=== PATIENT | male | born 1995 | race Caucasian/White ===

== ENCOUNTER 2017-12-24 00:25 | Emergency (ER) | payer OTHER, SELFPAY ==
[2017-12-24] VITALS (12 sets, daily range): BP systolic 135–167; BP diastolic 68–88; PULSE 96–129; RESP 18; TEMP 36.9; O2SAT 98–100
--- NOTE | 2017-12-24 00:50 | ED.GENADUL ---
Disposition Clinical Impression: Cocaine use, Seizure, Marijuana use Disposition: AGAINST MEDICAL ADVICE Condition: Stable Additional Instructions: It is recommended that you stay and have further evaluation including imaging such as MRI of the brain. Your seizure is likely to have been caused by cocaine but cocaine can cause vascular problems including strokes. Your CT scan is not completely normal and while it may be artifact there may be a vascular problem occurring. You have been told of the risk of stroke, neurologic deficit, . You understand the risk and have decided to sign out AMA. Because of the seizure you should avoid driving, swimming, heights, any other dangerous activity until seen and cleared by a neurologist. You should follow-up with the neurologist to get further evaluation. You may return to the ED at any time if you change your mind in terms of evaluation. You should definitely return to the ED if you develop any new neurologic symptoms, recurrent seizures, headaches. Avoid drugs and alcohol completely for the time being. Referrals: Irena Hdez MD [ [facility] STAFF PHYSICIAN] - Primary Care Provider [Outside] Medical Decision Making - Lab Data Results reviewed for labs ordered during visit: Yes - EKG Data -: EKG Interpreted by Me EKG shows normal: sinus rhythm Rate: tachycardia Interpretation: nonspecific ST-T wave changes - Radiology Data Radiology results: report reviewed - Medical Decision Making Patient here status post what certainly sounds like seizure and is likely related to cocaine intoxication. He is currently normal neurologically. He is tachycardic. His EKG is sinus tach at 115. He has some J-point elevation and some non-specific changes but nothing acute. IV established and laboratory studies sent. Head CT ordered. Seizure precautions ordered. Patient's laboratory studies are significant for a white count of 18,000 which may be related to the seizure, the cocaine use, distress. His hemoglobin is normal. His chemistries are unremarkable. Urine drug screen positive for marijuana and cocaine as he admitted to. Alcohol level is 0. Head CT is being read preliminarily as no acute intracranial pathology. The superior sagittal sinus appears slightly hyperdense but does not appear to be related to venous sinus thrombosis. However, since the scan was done without contrast this cannot be completely eliminated as a possibility. Patient's heart rate has come down to normal with fluids. He remains neurologically intact. Case is discussed with neurology at [facility]. Because of the cocaine use and the risk of vascular problems including stroke they are recommending admission for neuro checks as well as CTA of the brain followed by MRI of the brain. Would not start any type of antiepileptic until workup was completed. I went to discuss this with the patient. Recommendations were made to be admitted and complete evaluation here in the hospital. Risk of stroke, neurologic deficit, was discussed. Patient is declining admission and wants to leave AMA. He has capacity to make this decision and understands the risk. I have instructed him not to drive, swim, participate in dangerous activities until he is followed up by neurology and has completed his evaluation. I have instructed him to return to the ED if he changes his mind or if he has any new neurologic symptoms or recurrent seizures. He has been referred to Dr. Ag for follow-up. He is discharged AGAINST MEDICAL ADVICE. History of Present Illness - General Chief complaint: Seizure Stated complaint: SEIZURE Time Seen by Provider: 12/24/17 00:50 Source: patient Mode of arrival: ambulatory Limitations: no limitations - History of Present Illness Initial comments: Patient presents to ED status post seizure. Patient has no history of seizures. Patient has no recollection of event. His girlfriend reports that he had walked over to the door and she thought he was going out. He subsequently became stiff and fell. He began to shake all over. He was incontinent of urine. Episode lasted about 3 minutes. He was then confused afterwards. EMS was called. On their arrival he was back to baseline and refused transport but did come in on his own. He admits to cocaine use, 2 lines, prior to the event happening. He uses cocaine sporadically. He also smoked marijuana and drank alcohol tonight. He currently has no physical complaints. He denies having headache, neck pain, chest pain, shortness of breath, numbness, weakness. - Related Data Unknown [No Known Home Meds] 11/14/16 Allergies Allergy/AdvReac Type Severity Reaction Status Date / Time No Known Allergies Allergy Unverified 12/24/17 00:45 Review of Systems Constitutional: denies: chills, fever Eyes: denies: eye pain, vision change ENT: denies: ear pain, throat pain, congestion Respiratory: denies: cough, shortness of breath Cardiovascular: denies: chest pain, palpitations, syncope Gastrointestinal: denies: abdominal pain, nausea, vomiting, diarrhea Genitourinary: denies: dysuria Musculoskeletal: denies: back pain, arthralgia, myalgia Skin: denies: rash Neurological: other (Seizure). denies: headache, weakness, numbness, paresthesias Past Medical History - Past Medical History Medical history: no medical history Surgical history: no surgical history - Social History Smoking status: current some day smoker Alcohol use: recent Drug use: cocaine, marijuana General Exam - General Limitations: no limitations General appearance: alert, in no apparent distress - Head Head exam: Present: atraumatic, normocephalic - Eye Eye exam: Present: normal apperance, PERRL, EOMI - Neck Neck exam: Present: normal inspection, full ROM. Absent: tenderness - Respiratory Respiratory exam: Present: normal lung sounds bilaterally - Cardiovascular Cardiovascular Exam: Present: regular rate, normal rhythm, normal heart sounds - GI/Abdominal GI/Abdominal exam: Present: soft. Absent: distended, tenderness, guarding - Extremities Exam Extremities exam: Present: normal inspection, full ROM. Absent: tenderness - Neurological Exam Neurological exam: Present: alert, oriented X3, CN II-XII intact, normal gait. Absent: motor sensory deficit - Psychiatric Psychiatric exam: Present: normal affect, normal mood - Skin Skin exam: Present: warm, dry, intact Course Vital Signs - 24 hr //18 00:35 Temperature 98.4 F Pulse 129 H Respiratory 18 Rate Blood Pressure 167/88 Pulse Oximetry 98
--- NOTE | 2017-12-24 01:15 | DI.RPTCT_ITS ---
SYMPTOM/DIAGNOSIS: NEW ONSET SEIZURE NONCONTRAST HEAD CT: No prior comparison exams. No intracranial hemorrhage or skull fracture seen. There is no evidence of mass or infarct. The ventricles are normal in size. The sinuses and mastoid air cells appear clear. IMPRESSION: Negative head CT
[2017-12-24 01:57] LABS: Abs Immature Grans 0.07 k/cumm (0.0-0.09); Basophils % 0.2; Eosinophils % 0.2; HCT 43.1 % (40.0-50.0); HGB 15.7 g/dL (13.5-17.5); Immature Grans % 0.4; Lymphocytes % 5.5; Mean Corp. HGB Concentration 36.4 g/dL (32.0-36.0); Mean Corpuscular Hemoglobin 30.2 pg (27.0-33.0); Mean Corpuscular Volume 82.9 fL (80-95); Mean Platelet Volume 10.2 fL (8.0-11.0); Monocytes % 6.1; Neutrophils % 87.6; Platelet Count 217 x1000/uL (130-400); RBC Distribution Width 12.6 % (11.8-14.1); White Blood Cell Count 18.06 k/cumm (4.4-10.8)
[2017-12-24 01:58] LABS: Bilirubin Negative (Negative); Blood Small (Negative); Clarity Sl Cloudy; Glucose Negative (Negative); Ketones Trace mg/dL (Negative); Leukocyte Esterase Negative (Negative); Nitrite Negative (Negative); Specific Gravity >= 1.030 (1.005-1.025); Urobilinogen 0.2 EU/dL (Up TO 0.2); pH 5.5 (5-8)
[2017-12-24 02:00] LABS: Absolute Basophil Count 0.04 k/cumm (0.0-0.2); Absolute Eosinophil Count 0.04 k/cumm (0.0-0.7); Absolute Lymphocyte Count 0.99 k/cumm (1.2-3.4); Absolute Neutrophil Count 15.82 k/cumm (1.2-6.7)
[2017-12-24 02:13] LABS: *AMPHETAMINES SCREEN URINE Negative (Negative); *BARBITURATES SCREEN URINE Negative (Negative); *BENZODIAZEPINES SCREEN URINE Negative (Negative); Cannabinoids THC POSITIVE (Negative); Cocaine Screen,Urine POSITIVE (Negative); METHADONE URINE SCREEN Negative (Negative); OPIATES URINE SCREEN Negative (Negative)
--- NOTE | 2017-12-24 02:14 | DI.VRAD_ITS ---
EXAM: CT Head Without Intravenous Contrast CLINICAL HISTORY: 22 years old, male; Signs and symptoms; Other: New onset seizure TECHNIQUE: Axial computed tomography images of the head/brain without intravenous contrast. All CT scans at this facility use at least one of these dose optimization techniques: automated exposure control; mA and/or kV adjustment per patient size (includes targeted exams where dose is matched to clinical indication); or iterative reconstruction. Coronal and sagittal reformatted images were created and reviewed. COMPARISON: No relevant prior studies available. FINDINGS: Brain: No evidence of acute intracranial bleed. No mass lesion or mass effect. Anne/white matter differentiation is unremarkable. Cerebellum is unremarkable. Cisterns are unremarkable. Brainstem is unremarkable. No suprasellar mass. Ventricles: Unremarkable. No ventriculomegaly. Bones/joints: Unremarkable. No acute fracture. Soft tissues: Unremarkable. Vasculature: Superior sagittal sinus appears slightly hyperdense which appears to be secondary to hematocrit effect. Sinuses: Unremarkable as visualized. No acute sinusitis. Mastoid air cells: Unremarkable as visualized. No mastoid effusion. IMPRESSION: 1. No evidence of intracranial pathology. 2. Superior sagittal sinus appears slightly hyperdense which appears to be secondary to hematocrit effect. This finding can be seen in high hematocrit levels or dehydration. Please correlate clinically. Thrombosis of superior sagittal sinus has higher attenuation values than seen on current study and the findings on the current study do not suggest venous sinus thrombosis. Please however note that study was performed without IV contrast and cannot evaluate for venous sinus thrombosis. MRI with contrast or CT angiogram with venous images is recommended if evaluation for venous sinus thrombosis is clinically needed. Dictated and Authenticated by: Steven Choudhary MD. Ordering:PAUL BLAKE MD
[2017-12-24] MEDS: Lactated Ringers 1,000 ML 1000 ML IV (02:23)
[2017-12-24] MEDS: Normal Saline Flush 10 ML SYR IVP (02:24)
[2017-12-24 02:26] LABS: ALT 33 U/L (12-78); AST 29 U/L (15-37); Albumin 4.7 g/dL (3.4-5.0); Alkaline Phosphatase 71 U/L (46-116); Anion Gap 7.4 mmol/L (3-11); BUN 12 mg/dL (7-18); Bilirubin, Total 1.2 mg/dL (0.2-1.0); CO2 29.6 mmol/L (21.0-32.0); CREATININE 1.17 mg/dL (0.70-1.30); Calcium 9.1 mg/dL (8.5-10.1); Chloride 102 mmol/L (98-107); Glucose 138 mg/dL (70-100); Magnesium 1.9 mg/dL (1.8-2.4); Potassium 3.5 mmol/L (3.5-5.1); Sodium 139 mmol/L (136-145); TSH 2.04 uIU/mL (0.358-3.74); Total Protein 7.8 g/dL (6.4-8.2)
[2017-12-24 02:27] LABS: Bacteria Negative HPF (Negative); Epithelial Cells Negative HPF (Negative); RBC 0-2 (0-2); WBC 0-2 HPF (0-5)
[2017-12-24 02:28] LABS: C & S Indicated? No/Sq. Contamination; Casts Negative LPF (Negative); Crystals Other HPF (Negative); Mucus Negative (Negative)
[2017-12-24 02:30] LABS: Tricyclic Antidepressants Negative (Negative)
[2017-12-24 02:47] LABS: ETHANOL BLOOD < 3.0 mg/dL (<3)
--- NOTE | 2017-12-24 12:48 | PDOC.ERCMPRO ---
Care Management Progress Note 12/24-Dr. Emerson requested assistance with a neurology and PCP (Courtney Watkins rehabilitation physician) f/u as soon as possible for seizures. Referral faxed to Neurology and [facility] today.
--- NOTE | 2017-12-24 12:49 | CMPROGNOTE_ITS ---
Care Management Progress Note 12/24-Dr. Emerson requested assistance with a neurology and PCP (Courtney Watkins purification supervisor) f/u as soon as possible for seizures. Referral faxed to Neurology and [facility] today.
== END 2017-12-24 04:19 | disposition left against medical advice (07) ==
PROVIDERS: Emergency Provider Emergency Medicine
DX: R56.9 Unspecified convulsions (principal); F14.129 Cocaine abuse with intoxication, unspecified; F12.90 Cannabis use, unspecified, uncomplicated; Z53.29 Procedure and treatment not carried out because of patient's decision for other reasons
CPT/HCPCS: 36415; 80053; 80307; 93005; 96360; 99285; 70450; 80320; 81003; 81015; 83735; 84443; 85025; 93010

== ENCOUNTER 2020-01-09 07:05 | Outpatient (CLI) | payer OTHER, SELFPAY ==
[2020-01-11 14:37] LABS: Patient Race White; SARS-CoV-2 RNA Undetected (Undetected); SARS-CoV-2 Specimen Source Nasopharynx
== END 2020-01-09 07:25 ==
PROVIDERS: Visit Provider Family Medicine
DX: Z11.59 Encounter for screening for other viral diseases (principal)
CPT/HCPCS: U0003

== ENCOUNTER 2022-01-27 17:38 | Outpatient (REF) | payer BC, SELFPAY ==
[2022-01-27 15:30] LABS: HCT 45.4 % (40.0-50.0); HGB 15.6 g/dL (13.5-17.5); MCH 29.6 pg (27.0-33.0); MCHC 34.4 % (32.0-36.0); MCV 86 fL (80-95); MPV 10.8 fL (8.0-11.0); Platelet Count 221 10^3/uL (130-400); RBC 5.27 10^6/uL (4.36-5.78); RDW 11.9 % (11.8-14.1); RDW-SD 37.5 fL; WBC 4.98 10^3/uL (4.4-10.8)
[2022-01-27 15:51] LABS: Anion Gap 7.5 mmol/L (3-11); BUN 13 mg/dL (7-18); CO2 30.5 mmol/L (21.0-32.0); CREATININE 0.9 mg/dL (0.70-1.30); Calcium 9.2 mg/dL (8.5-10.1); Calculated LDL 58 mg/dL (<100); Chloride 104 mmol/L (98-107); Cholesterol 151 mg/dL (<200); Glucose 88 mg/dL (74-106); HDL Cholesterol 80 mg/dL (40-60); Potassium 4.2 mmol/L (3.5-5.1); Sodium 142 mmol/L (136-145); Triglyceride 67 mg/dL (<150)
== END 2022-01-27 17:39 | disposition home or self-care (01) ==
LOC: NCHCN 17:38
PROVIDERS: Visit Provider Physician Assistant
DX: I10 Essential (primary) hypertension (principal)
CPT/HCPCS: 80048; 80061; 85027

== ENCOUNTER 2023-09-06 15:12 | Outpatient (REF) | payer BC, SELFPAY ==
[2023-09-06 15:43] LABS: HGB 15.3 g/dL (13.5-17.5); MCV 85 fL (80-95); MPV 10.3 fL (8.0-11.0); Platelet Count 270 10^3/uL (130-400); RBC 5.28 10^6/uL (4.36-5.78); RDW 12.2 % (11.8-14.1); RDW-SD 37.8 fL; WBC 5.47 10^3/uL (4.4-10.8)
[2023-09-06 16:07] LABS: ESR 1 mm/hr (0-15)
[2023-09-06 16:15] LABS: C-Reactive Protein < 0.50 mg/dL (<or=0.5)
[2023-09-06 21:26] LABS: Rheumatoid Factor <8.6 IU/mL (<12.0)
[2023-09-07 09:30] LABS: Cyclic Citrullinated Peptide <2.5 U/mL (<5.0)
[2023-09-07 11:01] LABS: Lyme Ab w Rflx to Lyme Confirm Negative (Negative)
[2023-09-07 13:53] LABS: ANA Interpretation Negative (Negative)
== END 2023-09-06 15:13 | disposition home or self-care (01) ==
LOC: NCHCN 15:12
PROVIDERS: PCP Physician Assistant; Visit Provider Physician Assistant
DX: M25.50 Pain in unspecified joint (principal)
CPT/HCPCS: 85027; 85652; 86200; 86038; 86140; 86431; 86618